=== PATIENT | male | born 1980 | race Caucasian/White ===

== ENCOUNTER 2016-12-08 16:00 | Emergency (ER) | payer BC, OTHER ==
[~2016-12-08] VITALS: Ht 167.6 cm; Wt 70.3 kg
--- NOTE | ~2016-12-08 | EKG ---
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
[~2016-12-08 16:00] MED LIST: IBUPROFEN 600600 M1 PO
[2016-12-08 17:23] LABS: ABSOLUTE NEUTROPHILS 6.5 thou/uL (1.4-8.2); BASOPHILS 0.6 % (0.0-2.0); EOSINOPHILS 0.2 % (0.0-3.0); HEMATOCRIT 43.9 % (42.0-52.0); HEMOGLOBIN 15.3 gm/dL (14.0-18.0); LYMPHOCYTES 15.7 % (24.0-44.0); MCHC 34.8 g/dL (28.0-37.0); MCV 83.1 fL (80.0-100.0); MONOCYTES 6.6 % (1.0-8.0); PLATELET COUNT 191 thou/uL (150-400); POLYS 76.9 % (36.0-66.0); RBC 5.28 mil/uL (4.50-6.00); RDW 13.1 % (10.5-14.5); WBC 8.4 thou/uL (4.0-11.0)
[2016-12-08 17:26] LABS: MANUAL DIFF NO
[2016-12-08 17:37] LABS: ANION GAP 8 mmol/L (7-16); BUN 19 mg/dL (7-18); CALCIUM 8.2 mg/dL (8.5-10.1); CHLORIDE 104 mmol/L (98-107); CO2 26 mmol/L (21-32); GLUCOSE 108 mg/dL (74-106); POTASSIUM 3.6 mmol/L (3.5-5.1); SODIUM 138 mmol/L (136-145)
[2016-12-08 17:41] LABS: ALBUMIN 3.6 g/dL (3.4-5.0); ALKALINE PHOSPHATASE 62 U/L (46-116); SGOT 22 U/L (15-37); SGPT 48 U/L (30-65); TOTAL BILIRUBIN 0.6 mg/dL (<0.1-1.0); TOTAL PROTEIN 6.8 g/dL (6.4-8.2); TROPONIN-I < 0.04 ng/mL (<0.04-0.07)
[2016-12-08 18:04] LABS: AMP/METHAMP Negative (Negative); BARBITURATES Negative (Negative); BENZODIAZEPINES Negative (Negative); COCAINE Negative (Negative); METHADONE Negative (Negative); OPIATES Negative (Negative); PCP Negative (Negative); THC Negative (Negative)
[2016-12-08 19:59] VITALS: BP 104/73
== END 2016-12-08 20:00 | disposition home or self-care (01) ==
LOC: ER 16:00
PROVIDERS: Physician Assistant
DX: R00.0 Tachycardia, unspecified (principal); R00.2 Palpitations; F17.210 Nicotine dependence, cigarettes, uncomplicated